=== PATIENT | male | born 1975 | race Caucasian/White ===

== ENCOUNTER 2023-05-04 00:35 | Inpatient (IN) | payer MEDICARE ==
[2023-05-04] MEDS ORDERED: LORazepam 2 MG/ML INJ IV STA ×5 (01:25→06:45)
[2023-05-04] MEDS ORDERED: chlordiazePOXIDE 25 MG CAP PO STA (01:25)
[2023-05-04] MEDS ORDERED: NICOTINE 21MG/24HR PATCH TRANSDERM STA ×2 (01:34→08:54)
[2023-05-04 02:43] LABS: Basophils # (A) 0.1 k/uL (0-0.2); Basophils % (A) 1 %; Eosinophils # (A) 0.2 k/uL (0-0.7); Eosinophils % (A) 3 %; HGB 15.2 gm/dL (13.0-17.5); Lymphocytes # (A) 1.5 k/uL (1.0-4.8); Lymphocytes % (A) 21 %; MCH 35.3 pg (25.0-35.0); MCHC 34.5 g/dL (31.0-37.0); MCV 102.2 fL (80.0-100.0); Macrocytosis Slight; Mean Platelet Volume 9.2; Monocytes # (A) 0.5 k/uL (0-1.0); Monocytes % (A) 7 %; Neutrophils # (A) 4.9 k/uL (1.3-7.7); Neutrophils % (A) 66 %; Platelet Count 122 k/uL (150-450); RBC 4.31 m/uL (4.30-5.90); WBC 7.4 k/uL (3.8-10.6)
[2023-05-04 03:23] LABS: ALT 74 U/L (4-49); AST 56 U/L (17-59); African American GFR (CKD) >90 (>60 ml/min/1.73 sqM); Alkaline Phosphatase 128 U/L (38-126); Anion Gap 12 mmol/L; Blood Urea Nitrogen 16 mg/dL (9-20); Carbon Dioxide 20 mmol/L (22-30); Chloride 102 mmol/L (98-107); Glucose 97 mg/dL (74-99); Non-African American GFR(CKD) >90 (>60 ml/min/1.73 sqM); Potassium 4.1 mmol/L (3.5-5.1); Sodium 134 mmol/L (137-145); Total Bilirubin 1.1 mg/dL (0.2-1.3); Total Protein 7.1 g/dL (6.3-8.2)
[2023-05-04] MEDS ORDERED: SODIUM CHLORIDE 0.9% 1,000 ML IV STA (04:35)
[2023-05-04] MEDS ORDERED: SODIUM CHLORIDE 0.9% 1,000 ML IV ONE (04:35)
[2023-05-04] MEDS ORDERED: NALOXONE 0.4 MG/ML 1 ML VIAL IV PRN (04:36)
[2023-05-04] MEDS ORDERED: chlordiazePOXIDE 25 MG CAP PO PRN (04:38)
[2023-05-04] MEDS ORDERED: LORazepam 1 MG TAB PO PRN (04:38)
--- NOTE | 2023-05-04 04:44 | ED ---
General Adult HPI - General Chief complaint: Psychiatric Symptoms Stated complaint: Hallucinations Time Seen by Provider: 05/04/23 00:55 Source: patient Mode of arrival: EMS Limitations: no limitations - History of Present Illness Initial comments: This patient is a 47-year-old man sent here from [facility] to have evaluation for hallucinations and altered mental status. Patient reportedly drinks approximately 1/5 of alcohol per day. Reported last use of alcohol nearly 2 days ago now. The patient was noted to be having conversations with people who were not there. He was also hallucinating about other things. On arrival here, the patient acknowledges hallucinations. States that he feels anxious and shaky. -: hour(s) Severity scale (1-10): 0 Consistency: constant Improves with: none Worsens with: none Associated Symptoms: confusion Treatments Prior to Arrival: none - Related Data Home Medications Medication Instructions Recorded Confirmed Acetaminophen Tab [Tylenol] 650 mg PO Q4H PRN MDD 4 doses 05/04/23 05/04/23 Calcium/Mag/Zinc/D3 1 tab PO TID PRN 05/04/23 05/04/23 Ibuprofen [Motrin Ib] 600 mg PO Q6H PRN 05/04/23 05/04/23 Multivitamins, Thera [Multivitamin 1 tab PO DAILY 05/04/23 05/04/23 (formulary)] Thiamine [Vitamin B-1] 100 mg PO DAILY 05/04/23 05/04/23 ondansetron HCL [Zofran] 8 mg PO Q6H PRN 05/04/23 05/04/23 traZODone HCL [Desyrel] 50 - 150 mg PO HS PRN 05/04/23 05/04/23 Previous Rx's Medication Instructions Recorded Famotidine [Pepcid] 20 mg PO BID 15 Days #30 tab 05/08/23 Gabapentin [Neurontin] 200 mg PO BID 3 Days #12 cap 05/08/23 Nicotine 21Mg/24Hr Patch [Habitrol] 1 patch TRANSDERM DAILY 5 Days #5 05/08/23 patch chlordiazePOXIDE HCl [Librium] 25 mg PO DIRECTED 5 Days #5 cap 05/08/23 cloNIDine HCL [Catapres] 0.1 mg PO BID #60 tab 05/08/23 Allergies Allergy/AdvReac Type Severity Reaction Status Date / Time erythromycin base Allergy Rash/Hives Verified 05/04/23 06:48 [From Erythrocin] acetaminophen [From [place]] AdvReac Hallucinati Verified 05/04/23 06:48 ons hydrocodone [From [place]] AdvReac Hallucinati Verified 05/04/23 06:48 ons Review of Systems ROS Statement: Those systems with pertinent positive or pertinent negative responses have been documented in the HPI. ROS Other: All systems not noted in ROS Statement are negative. Constitutional: Denies: fever, weakness Eyes: Denies: vision change Respiratory: Denies: cough, dyspnea Cardiovascular: Denies: chest pain, palpitations, edema Gastrointestinal: Reports: nausea. Denies: abdominal pain, vomiting, diarrhea Genitourinary: Denies: dysuria, hematuria Musculoskeletal: Denies: back pain Skin: Denies: rash Neurological: Reports: confusion. Denies: headache, weakness, numbness Psychiatric: Reports: anxiety Past Medical History Additional Past Medical History / Comment(s): Wing bite to hand and feet aprox 6-7 year ago. 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 Absent: scleral icterus, conjunctival injection ENT exam: Present: normal oropharynx Neck exam: Present: normal inspection Respiratory exam: Present: normal lung sounds bilaterally. Absent: respiratory distress, wheezes, rales, rhonchi, stridor Cardiovascular Exam: Present: regular rate, normal rhythm, normal heart sounds. Absent: systolic murmur, diastolic murmur, rubs, gallop GI/Abdominal exam: Present: soft. Absent: distended, tenderness, guarding, rebound, rigid Extremities exam: Present: normal inspection, normal capillary refill. Absent: pedal edema, calf tenderness Back exam: Present: normal inspection. Absent: CVA tenderness (R), CVA tenderness (L) Neurological exam: Present: alert Skin exam: Present: warm, dry, intact, normal color, rash (Patient has mild dermatitis bilateral lower extremities) Course Vital Signs 05/04/23 05/04/23 05/04/23 00:37 04:17 05:13 Temperature 98.4 F Pulse Rate 93 86 90 Respiratory 18 19 17 Rate Blood Pressure 138/92 155/99 175/110 O2 Sat by Pulse 97 98 97 Oximetry 05/04/23 05/04/23 06:30 06:35 Temperature Pulse Rate 89 90 Respiratory 19 17 Rate Blood Pressure 188/112 162/110 O2 Sat by Pulse 98 96 Oximetry - Reevaluation(s) Reevaluation #1: 05/04/23 06:24 Case discussed with mid-level practitioner Jerzy Centeno covering ICU, patient will be transferred there for elevated see what score Medical Decision Making - Medical Decision Making Was pt. sent in by a medical professional or institution (, PA, GLASS OR MIRROR INSPECTOR, urgent care, hospital, or senior living...) When possible be specific @ -Yes the patient sent from [facility] evaluation Did you speak to anyone other than the patient for history (EMS, parent, family, police, friend...)? What history was obtained from this source @ -[EMS Did you review nursing and triage notes (agree or disagree)? Why? @ -[I reviewed and agree with nursing and triage notes] Were old charts reviewed (outside hosp., previous admission, EMS record, old EKG, old radiological studies, urgent care reports/EKG's, senior living records)? Report findings @ -[The transfer records were reviewed] Differential Diagnosis (chest pain, altered mental status, abdominal pain women, abdominal pain men, vaginal bleeding, weakness, fever, dyspnea, syncope, headache, dizziness, GI bleed, back pain, seizure, CVA, palpatations, mental health, musculoskeletal)? @ -[Differential Altered Mental Status: Hypoglycemia, DKA, hypercapnia, ETOH, overdose, CO poisoning, trauma, myxedema coma, HTN encephalopathy, infection, encephalitis, psychosis, intercranial hemorrhage, hepatic encephalopathy, meningitis, CVA, this is not meant to be an all-inclusive list EKG interpreted by me (3pts min.). @ -[As above] X-rays interpreted by me (1pt min.). @ -[None done] CT interpreted by me (1pt min.). @ -[None done] U/S interpreted by me (1pt. min.). @ -[None done] What testing was considered but not performed or refused? (CT, X-rays, U/S, labs)? Why? @ -[None] What meds were considered but not given or refused? Why? @ -[None] Did you discuss the management of the patient with other professionals (professionals i.e. , PA, GLASS OR MIRROR INSPECTOR, lab, RT, psych nurse, mental health social worker, furnace loader, teacher, chief technical officer, case operator)? Give summary @ -[Case discussed with the admitting physician and with the mid-level practitioner covering intensive care, treatment recommendations are incorporated Was smoking cessation discussed for >3mins.? @ -[No] Was critical care preformed (if so, how long)? @ -[Yes, 35 minutes Were there social determinants of health that impacted care today? How? (Homelessness, low income, unemployed, alcoholism, drug addiction, transportation, low edu. Level, literacy, decrease access to med. care, long term, rehab)? @ -[No] Was there de-escalation of care discussed even if they declined (Discuss DNR or withdrawal of care, Hospice)? DNR status @ -[No] What co-morbidities impacted this encounter? (DM, HTN, Smoking, COPD, CAD, Cancer, CVA, ARF, Chemo, Hep., AIDS, mental health diagnosis, sleep apnea, morbid obesity)? @ -[None] Was patient admitted / discharged? Hospital course, mention meds given and route, prescriptions, significant lab abnormalities, going to OR and other pertinent info. @ -[Patient is a 47-year-old man here with altered mental status, consistent with moderately severe alcohol withdrawal syndrome/delirium tremens. Patient started on benzodiazepine coverage IV fluids, admitted to intensive care. Undiagnosed new problem with uncertain prognosis? @ -[No] Drug Therapy requiring intensive monitoring for toxicity (Heparin, Nitro, Insulin, Cardizem)? @ -[No] Were any procedures done? @ -[No] Diagnosis/symptom? @ -[Acute alcohol withdrawal/delirium tremens Acute, or Chronic, or Acute on Chronic? @ -[Acute Uncomplicated (without systemic symptoms) or Complicated (systemic symptoms)? @ -[Complicated by hallucinations/mental status change Side effects of treatment? @ -[No] Exacerbation, Progression, or Severe Exacerbation? @ -[No] Poses a threat to life or bodily function? How? (Chest pain, USA, AR, pneumonia, PE, COPD, DKA, ARF, appy, cholecystitis, CVA, Diverticulitis, Homicidal, Suicidal, threat to staff... and all critical care pts) @ -[Yes, withdrawal/delirium tremens associated with significant morbidity/mortality - Lab Data Result diagrams: 05/06/23 03:36 05/07/23 06:33 Lab Results 05/04/23 05/04/23 Range/Units 02:35 02:35 WBC 7.4 (3.8-10.6) k/uL RBC 4.31 (4.30-5.90) m/uL Hgb 15.2 (13.0-17.5) gm/dL Hct 44.0 (39.0-53.0) % MCV 102.2 H (80.0-100.0) fL MCH 35.3 H (25.0-35.0) pg MCHC 34.5 (31.0-37.0) g/dL RDW 13.0 (11.5-15.5) % Plt Count 122 L (150-450) k/uL MPV 9.2 Neutrophils % 66 % Lymphocytes % 21 % Monocytes % 7 % Eosinophils % 3 % Basophils % 1 % Neutrophils # 4.9 (1.3-7.7) k/uL Lymphocytes # 1.5 (1.0-4.8) k/uL Monocytes # 0.5 (0-1.0) k/uL Eosinophils # 0.2 (0-0.7) k/uL Basophils # 0.1 (0-0.2) k/uL Macrocytosis Slight Sodium 134 L (137-145) mmol/L Potassium 4.1 (3.5-5.1) mmol/L Chloride 102 (98-107) mmol/L Carbon Dioxide 20 L (22-30) mmol/L Anion Gap 12 mmol/L BUN 16 (9-20) mg/dL Creatinine 0.73 (0.66-1.25) mg/dL Est GFR (CKD-EPI)AfAm >90 (>60 ml/min/1.73 sqM) Est GFR (CKD-EPI)NonAf >90 (>60 ml/min/1.73 sqM) Glucose 97 (74-99) mg/dL Calcium 10.0 (8.4-10.2) mg/dL Total Bilirubin 1.1 (0.2-1.3) mg/dL AST 56 (17-59) U/L ALT 74 H (4-49) U/L Alkaline Phosphatase 128 H (38-126) U/L Total Protein 7.1 (6.3-8.2) g/dL Albumin 4.0 (3.5-5.0) g/dL TSH 4.810 H (0.465-4.680) mIU/L Free T4 1.40 (0.78-2.19) ng/dL Disposition Clinical Impression: Acute hyperactive alcohol withdrawal delirium Disposition: ADMITTED IP TO THIS HOSP Condition: Serious Is patient prescribed a controlled substance at d/c from ED?: No
[2023-05-04] MEDS: SODIUM CHLORIDE 0.9% 1,000 ML IV SCH ×2 (05:09→20:21)
[2023-05-04] MEDS: THIAMINE 100 MG TAB PO SCH (05:11)
[2023-05-04] MEDS: LORazepam 2 MG/ML INJ IV PRN ×3 (05:47→07:59)
[2023-05-04] MEDS: DEXMEDETOMIDINE/0.9% NACL(PMX) 400 MCG in EMPTY BAG 1 BAG IV SCH ×4 (06:35→21:49)
[2023-05-04] MEDS ORDERED: ACETAMINOPHEN TAB 325 MG TAB PO PRN (06:42)
[2023-05-04] MEDS ORDERED: Potassium Replacement Protocol 1 EACH MISC MISCELLANE PRN (06:42)
[2023-05-04] MEDS ORDERED: Magnesium Replacement Protocol 1 EACH MISC MISCELLANE PRN (06:42)
[2023-05-04 06:52] LABS: Glucose,Whole Blood 107 mg/dL (70-110)
--- NOTE | 2023-05-04 07:28 | P.CNPUL ---
History of Present Illness Consult date: 05/04/23 Requesting physician: Bill Bailey Reason for consult: other (ICU management, alcohol withdrawal) Chief complaint: Delirium tremens History of present illness: I am seeing this patient in new consultation today 05/04/2023 in the intensive care unit for acute alcohol withdrawal syndrome. Patient is a 47-year-old white male with past medical history significant for alcoholism. He reportedly drinks one fifth per day. Last drink was apparently Wednesday. He is currently delirious and unable to participate in HPI. [facility] He was there to become clean from alcohol. He was having hallucinations and was anxious and shaky. He's received a total of 16 mg of Ativan so far. For this reason, he is admitted to the intensive care unit. He will be started on Precedex infusion as he still agitated. He did try to climb on the bedside table, and is currently trying to get out of bed. Most recent recorded CIWA score is 18. He is having active auditory hallucinations. He does have a bedside sitter. Hemodynamically, the patient is stable. He is slightly hypertensive. No seizure activity noted. CBC on arrival is unremarkable. Except for some macrocytosis. He is likely vitamin B deficiency, and is on supplementation. BMP on arrival unremarkable. Normal saline infusing at 75 ml/hr. Patient will be monitored in the intensive care unit. Review of Systems REVIEW OF SYSTEMS: CONSTITUTIONAL: Denies any recent significant weight loss or weight gain. EYES: Denies change in vision. EARS, NOSE, MOUTH, THROAT: Denies headaches, denies sore throat. CARDIOVASCULAR: Denies chest pain, palpitations or syncopal episodes. RESPIRATORY: Denies shortness of breath, cough, congestion or hemoptysis. GASTROINTESTINAL: Denies change in appetite, abdominal pain, nausea and vomiting, or diarrhea GENITOURINARY: Denies hematuria, denies infections. MUSKULOSKELETAL: Denies pain, denies swelling. INTEGUMENTARY: Denies rash, denies eczema. NEUROLOGICAL: Denies recent memory loss, no recent seizure activity. PSYCHIATRIC: Denies anxiety, denies depression. HEMATOLOGIC/LYMPHATIC: Denies anemia, denies enlarged lymph node Past Medical History Additional Past Medical History / Comment(s): Wing bite to hand and feet aprox 6-7 year ago. 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 Past Psychological History: No Psychological Hx Reported Smoking Status: Current every day smoker Past Alcohol Use History: Abuse Past Drug Use History: None Reported Medications and Allergies Home Medications Medication Instructions Recorded Confirmed Type Acetaminophen Tab [Tylenol] 650 mg PO Q4H PRN MDD 4 doses 05/04/23 05/04/23 History Calcium/Mag/Zinc/D3 1 tab PO TID PRN 05/04/23 05/04/23 History Chlorpheniramine Maleate 4 mg PO Q4H PRN 05/04/23 05/04/23 History [Chlor-Trimeton] Ibuprofen [Motrin Ib] 600 mg PO Q6H PRN 05/04/23 05/04/23 History LORazepam [Ativan] 1 - 2 mg PO Q4H PRN 05/04/23 05/04/23 History Multivitamins, Thera [Multivitamin 1 tab PO DAILY 05/04/23 05/04/23 History (formulary)] Thiamine [Vitamin B-1] 100 mg PO DAILY 05/04/23 05/04/23 History cloNIDine HCL [Catapres] 0.1 mg PO Q4H PRN 05/04/23 05/04/23 History ondansetron HCL [Zofran] 8 mg PO Q6H PRN 05/04/23 05/04/23 History traZODone HCL [Desyrel] 50 - 150 mg PO HS PRN 05/04/23 05/04/23 History Allergies Allergy/AdvReac Type Severity Reaction Status Date / Time erythromycin base Allergy Rash/Hives Verified 05/04/23 06:48 [From Erythrocin] acetaminophen [From [place]] AdvReac Hallucinati Verified 05/04/23 06:48 ons hydrocodone [From [place]] AdvReac Hallucinati Verified 05/04/23 06:48 ons Physical Exam Vitals: Vital Signs Temp Pulse Resp BP Pulse Ox 05/04/23 06:35 90 17 162/110 96 05/04/23 06:30 89 19 188/112 98 05/04/23 05:13 90 17 175/110 97 05/04/23 04:17 86 19 155/99 98 05/04/23 00:37 98.4 F 93 18 138/92 97 Intake and Output 05/03/23 05/04/23 05/04/23 22:59 06:59 14:59 Other: Weight 86.183 kg GENERAL EXAM: Agitated and confused, 47-year-old male, disheveled HEAD: Normocephalic and atraumatic EYES: Normal reaction of pupils, equal size. NOSE: Clear with pink turbinates. THROAT: No erythema or exudates. NECK: No masses, no JVD. CHEST: No chest wall deformity. LUNGS: Equal air entry with no crackles, wheeze, rhonchi or dullness. On room air. No conversational dyspnea or accessory muscle use.. CVS: S1 and S2 normal with no audible murmur, regular rhythm. No extra heart sounds ABDOMEN: No hepatosplenomegaly, active bowel sounds, no guarding or rigidity. SPINE: No scoliosis or deformity SKIN: No rashes CENTRAL NERVOUS SYSTEM: No focal deficits, tone is normal in all 4 extremities. EXTREMITIES: There is no peripheral edema or cyanosis. Peripheral pulses are intact. There is severe clubbing. Results - Laboratory Findings CBC and BMP: 05/04/23 02:35 05/04/23 02:35 Abnormal lab findings: Abnormal Labs 05/04/23 05/04/23 02:35 02:35 MCV 102.2 H MCH 35.3 H Plt Count 122 L Sodium 134 L Carbon Dioxide 20 L ALT 74 H Alkaline Phosphatase 128 H TSH 4.810 H Assessment and Plan Assessment: Alcohol withdrawal syndrome and delirium tremens History of alcoholism, reportedly 1/5 of liquor/daily Mildly elevated LFTs related to above Hypertension Chronic ongoing tobacco dependence Plan: Patient will be admitted to the intensive care unit for management of his acute alcohol withdrawal symptoms. Currently he received a total of 16 mg of Ativan. He still agitated and delirious with an elevated CIWA score. Last recorded CIWA was 18. We will start the patient on a Precedex infusion per protocol. Patient is receiving vitamin B1 supplementation. IV hydration in the form of normal saline at 75 mL per hour. Initiate seizure precautions. Protonix for GI prophylaxis. Further recommendations are forthcoming. I have personally seen and examined the patient, performed the documentation and the assessment and plan as written. Number of minutes spent on the visit:20 This is a joint evaluation that was done along with the nurse practitioner. His evaluation was on a more than 30 minutes. The patient came to us from [place] because of alcohol withdrawal wounds. He was extensively agitated. Kristie guido is in the intensive care unit. Orders received a total of 18 mg of Ativan and he is on Precedex at 1.4 mcg/kg/h. He is resting comfortably at this point in time. No signs of any respiratory suppression. He is on room air oxygen.Blood work is essentially within normal limits. He does have a mild component of non-anion gap metabolic acidosis. He does have also a mild abnormalities in LFTs. He is currently on Librium 50 mg every 4 hours when necessary, Precedex, Ativan as needed per protocol, normal saline at rate of 75 mL's an hour, thiamine, and he will be also given heparin subcu for DVT prophylaxis and IV Protonix. We will order nicotine patch. We'll give the patient hydralazine 10 mg IV every 4-6 hours for systolic blood pressure above 140. Time with Patient: Greater than 30
--- NOTE | 2023-05-04 07:48 | P.HPIM ---
History of Present Illness This is a pleasant 47 years old male with unknown past medical history. Patient currently cannot provide information due to his confusion status. Information were obtained from the staff and medical records. Patient initially was sent from [place] for visual hallucinations which is started yesterday 05/20. Patient was noticed talking to people that are not there. He is a known history of alcohol use disorder and he drinks about 1/5 of liquor per day per records. Patient hemodynamically stable. No fever, no leukocytosis, the suspicion of infection is low for now however we'll keep monitoring her closely Liver enzymes mildly elevated, bilirubin is within the reference range TSH is high at 4.8 but normal free T4 at 1.4. His CIWA score was origin between 18-21 As per staff once he got to the ICU patient be about 850 mL and his suprapubic area still looks a little full Review of Systems ROS unobtainable: due to mental status Past Medical History Additional Past Medical History / Comment(s): Wing bite to hand and feet aprox 6-7 year ago. History of Any Multi-Drug Resistant Organisms: None Reported Additional Past Surgical History / Comment(s): amputations to the tips of finger s and most of his toes Past Psychological History: No Psychological Hx Reported Smoking Status: Current every day smoker Past Alcohol Use History: Abuse Past Drug Use History: None Reported Medications and Allergies Home Medications Medication Instructions Recorded Confirmed Type Acetaminophen Tab [Tylenol] 650 mg PO Q4H PRN MDD 4 doses 05/04/23 05/04/23 History Calcium/Mag/Zinc/D3 1 tab PO TID PRN 05/04/23 05/04/23 History Chlorpheniramine Maleate 4 mg PO Q4H PRN 05/04/23 05/04/23 History [Chlor-Trimeton] Ibuprofen [Motrin Ib] 600 mg PO Q6H PRN 05/04/23 05/04/23 History LORazepam [Ativan] 1 - 2 mg PO Q4H PRN 05/04/23 05/04/23 History Multivitamins, Thera [Multivitamin 1 tab PO DAILY 05/04/23 05/04/23 History (formulary)] Thiamine [Vitamin B-1] 100 mg PO DAILY 05/04/23 05/04/23 History cloNIDine HCL [Catapres] 0.1 mg PO Q4H PRN 05/04/23 05/04/23 History ondansetron HCL [Zofran] 8 mg PO Q6H PRN 05/04/23 05/04/23 History traZODone HCL [Desyrel] 50 - 150 mg PO HS PRN 05/04/23 05/04/23 History Allergies Allergy/AdvReac Type Severity Reaction Status Date / Time erythromycin base Allergy Rash/Hives Verified 05/04/23 06:48 [From Erythrocin] acetaminophen [From [place]] AdvReac Hallucinati Verified 05/04/23 06:48 ons hydrocodone [From [place]] AdvReac Hallucinati Verified 05/04/23 06:48 ons Physical Exam Vitals: Vital Signs Temp Pulse Resp BP Pulse Ox 05/04/23 06:35 90 17 162/110 96 05/04/23 06:30 89 19 188/112 98 05/04/23 05:13 90 17 175/110 97 05/04/23 04:17 86 19 155/99 98 05/04/23 00:37 98.4 F 93 18 138/92 97 Intake and Output 05/03/23 05/04/23 05/04/23 22:59 06:59 14:59 Other: Weight 86.183 kg -GENERAL: The patient is awake but very confused, does not follow commands. Well developed, well nourished. HEENT: Pupils are round and equally reacting to light. EOMI. No scleral icterus. No conjunctival pallor. Normocephalic, atraumatic. No pharyngeal erythema. No thyromegaly. CARDIOVASCULAR: S1 and S2 present. No murmurs, rubs, or gallops. PULMONARY: Chest is clear to auscultation, no wheezing , no crackles. ABDOMEN: Soft, nontender, nondistended, normoactive bowel sounds. No palpable o rganomegaly. MUSCULOSKELETAL: No joint swelling or deformity. EXTREMITIES: No cyanosis, clubbing, or pedal edema. -NEUROLOGICAL: examination is limited by patient's mentation. Gross neurological examination did not reveal any focal deficits. patient is noticed to move both upper and lower extremities symmetrically, he was holding the very remote in his right hand and trying to reach out with his left hand. He moves both legs slowly and symmetrically. The open his mouth without difficulty. It's hard to assess for neck stiffness as patient is not cooperation and he is sitting up in bed. -SKIN: No rashes. no petechiae. tattoos on the right shoulder Results CBC & Chem 7: 05/04/23 02:35 05/04/23 02:35 Labs: Abnormal Lab Results - Last 24 Hours (Table) 05/04/23 05/04/23 Range/Units 02:35 02:35 MCV 102.2 H (80.0-100.0) fL MCH 35.3 H (25.0-35.0) pg Plt Count 122 L (150-450) k/uL Sodium 134 L (137-145) mmol/L Carbon Dioxide 20 L (22-30) mmol/L ALT 74 H (4-49) U/L Alkaline Phosphatase 128 H (38-126) U/L TSH 4.810 H (0.465-4.680) mIU/L Assessment and Plan Assessment: Delirium tremens with hallucination Metabolic/toxic encephalopathy Alcohol use disorder Subclinical hyperthyroidism, asymptomatic Mild alcoholic transaminitis Plan: Continue with CIWA protocol and phentermine Continue with telemetry Keep monitoring in the ICU with pulmonary/critical care consult Start Librium 25 mg 3 times a day Check for bladder scan Labs and medication were reviewed.. Continue same treatment. Continue with symptomatic treatment. Resume home medication. Monitor labs and vitals. DVT and GI prophylaxis. Further recommendations as per clinical course of the patient DVT prophylaxis: Subcutaneous heparin GI Prophylaxis: Pepcid Prognosis is guarded
[2023-05-04] MEDS: hydrALAZINE HCL 20 MG/ML 1 ML VIAL IVP PRN ×3 (09:12→21:13)
[2023-05-04] MEDS: PANTOPRAZOLE 40 MG/10 ML VIAL IVP SCH (09:12)
[2023-05-04] MEDS: HEPARIN SODIUM,PORCINE 5,000 UNIT/ML 1 ML VIAL SQ SCH ×2 (09:12→21:13)
[2023-05-04] MEDS: FAMOTIDINE 20 MG TAB PO SCH ×2 (09:12→21:15)
--- NOTE | 2023-05-04 14:36 | P.CN ---
Psychiatric Consult - . Consult date: 05/04/23 Consult:: 05/04/23 13:47 IDENTIFYING DATA: This patient is a [] 47-year-old male, currently lives with his mother in a house, he is unemployed, he is divorce he has not kids. REASON FOR REFERRAL: Psychiatry was consulted for []hallucinations and acute alcohol withdrawal. HISTORY OF PRESENT ILLNESS: The patient presented to the hospital on 05/04, patient came in and was sent from [facility] after being altered mental status and confused. Patient apparently was hallucinating and talking and having conversations with people who weren't there. Patient reportedly drinks fairly heavily every day, his last drink was about 2 days ago before admission. Patient appeared to be anxious and shaky, he is admitted to the ICU for treatment of severe alcohol withdrawal. Patient was laying in bed with his eyes closed. He was agreeable to speak tried her briefly. He was fairly concrete, fairly soft spoken. He told me his name and his correct age. She did not know where he was. He believes that it was "05/18/2003". He states that he was "drinking too much" and states that he was around a pint of alcohol per day. He states that he may have been hallucinating he does not recall. She was a fairly poor historian. He did not endorse any problems with his mood or anxiety at this time. Very mildly tremulous at this time. Nursing care patient states that he was hallucinating earlier in the morning, UA has been given around 18 mg of Ativan since being in the hospital. He is currently on precedex which is being titrated down. At this time patient denies any suicidal or homical ideations, intent or plan. Patient denies any current auditory, visual hallucinations and denies any paranoia or delusions. Patients admits to using alcohol as noted above. Denies any other recreational drug use.] PAST PSYCHIATRIC HISTORY: Patient has a a history of alcohol dependence/abuse. Was not able to gather further information from patient due to mental status. Additional Past Medical History / Comment(s): Wing bite to hand and feet aprox 6-7 year ago. 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 CHEMICAL DEPENDENCY HISTORY: as per HPI. FAMILY PSYCHIATRIC/SUBSTANCE USE HISTORY: unAble to gather SOCIAL HISTORY: Patient things that he currently lives with his mother, and house, he is , he is unemployed, no kids. Unable to gather further social history. MENTAL STATUS EXAM: General Appearance: Patient appears to be laying in bed, eyes closed, stated age is lethargic. Patient appears to have [fair] hygiene and grooming wearing hospital gown. Several tattoos Behavior: [Patient is calmly lying in bed without any agitated behavior.] Mildly tremulous. Eyes closed. Speech: Patient's speech is concrete, soft tone. Mood/Affect: Not endorsing any depression at this time, constricted affect Suicidality/Homicidality: Patient denies having any suicidal or homicidal ideation intent or plan. Perceptions: Patient denies any visual hallucinations [and denies any auditory hallucinations] however was apparently hallucinating earlier. Though content/process: [place], positive content. Memory and concentration: AOX1-2, does not know the correct location and the correct date today. Only follow some commands. Fairly lethargic Judgment and insight: [poor] IMPRESSIONS: Delirium likely secondary to alcohol withdrawal Alcohol use disorder, severe dependence PLAN: -At this time patient DOES [NOT] meet criteria for inpatient psychiatric admission. -Would recommend the following medication changes/additions: continue titrating off precedex as tolerated. Start Librium scheduled 25 mg 3 times a day for alcohol withdrawal and then continue to taper gradually each day. [-CIWA protocol with PRN Ativan for alcohol withdrawal. Continue to monitor vital signs.] [-mental health worker to provide patient with outpatient mental health/psychiatry resources for appropriate follow up upon discharge] [-mental health worker to provide patient substance use treatment resources including AA/NA meetings in the community.] -Patient was encouraged to go back to [facility] inpatient substance rehab once he has completely finished his withdrawals and is no longer confused or delirious. [-Communicated plan to patient's nurse] [-Psychiatry will sign off at this time, however if patient continues to deteriorate or worsen then please contact [facility] again.] -Please contact with any questions. 05/04/23 14:29 05/04/23 14:31
[2023-05-04] MEDS: chlordiazePOXIDE 25 MG CAP PO SCH ×2 (17:43→21:15)
[2023-05-05] MEDS ORDERED: IBUPROFEN 400 MG TAB PO STA (03:38)
[2023-05-05 05:07] LABS: Basophils % (A) 0 %; Eosinophils # (A) 0.1 k/uL (0-0.7); Eosinophils % (A) 2 %; HCT 47.2 % (39.0-53.0); HGB 15.7 gm/dL (13.0-17.5); Lymphocytes # (A) 0.6 k/uL (1.0-4.8); Lymphocytes % (A) 8 %; MCH 34.4 pg (25.0-35.0); MCHC 33.2 g/dL (31.0-37.0); MCV 103.6 fL (80.0-100.0); Macrocytosis Slight; Mean Platelet Volume 8.8; Monocytes # (A) 0.5 k/uL (0-1.0); Monocytes % (A) 6 %; Neutrophils # (A) 7.1 k/uL (1.3-7.7); Neutrophils % (A) 83 %; Platelet Count 158 k/uL (150-450); RBC 4.55 m/uL (4.30-5.90); RDW 13.1 % (11.5-15.5); WBC 8.5 k/uL (3.8-10.6)
[2023-05-05 05:17] LABS: African American GFR (CKD) >90 (>60 ml/min/1.73 sqM); Anion Gap 11 mmol/L; Blood Urea Nitrogen 14 mg/dL (9-20); Calcium 8.8 mg/dL (8.4-10.2); Carbon Dioxide 18 mmol/L (22-30); Chloride 106 mmol/L (98-107); Glucose 84 mg/dL (74-99); Non-African American GFR(CKD) >90 (>60 ml/min/1.73 sqM); Sodium 135 mmol/L (137-145)
[2023-05-05] MEDS: chlordiazePOXIDE 25 MG CAP PO SCH ×3 (09:00→21:14)
[2023-05-05] MEDS: THIAMINE 100 MG TAB PO SCH (09:00)
[2023-05-05] MEDS: FAMOTIDINE 20 MG TAB PO SCH ×2 (09:00→21:14)
[2023-05-05] MEDS: PANTOPRAZOLE 40 MG/10 ML VIAL IVP SCH ×2 (09:00→23:39)
[2023-05-05] MEDS: HEPARIN SODIUM,PORCINE 5,000 UNIT/ML 1 ML VIAL SQ SCH ×2 (09:00→21:14)
[2023-05-05] MEDS: SODIUM CHLORIDE 0.9% 1,000 ML IV SCH ×2 (09:01→21:15)
[2023-05-05] MEDS: LORazepam 2 MG/ML INJ IV PRN ×3 (09:09→17:31)
[2023-05-05] MEDS ORDERED: ONDANSETRON 4 MG/2 ML VIAL IVP STA (09:13)
[2023-05-05] MEDS ORDERED: ONDANSETRON 4 MG/2 ML VIAL IVP PRN (09:13)
--- NOTE | 2023-05-05 10:37 | P.PN ---
Subjective Progress Note Date: 05/05/23 I am seeing this patient in new consultation today 05/04/2023 in the intensive care unit for acute alcohol withdrawal syndrome. Patient is a 47-year-old white male with past medical history significant for alcoholism. He reportedly drinks one fifth per day. Last drink was apparently Wednesday. He is currently delirious and unable to participate in HPI. Patient was sent from [facility] facility early this morning. He was there to become clean from alcohol. He was having hallucinations and was anxious and shaky. He's received a total of 16 mg of Ativan so far. For this reason, he is admitted to the intensive care unit. He will be started on Precedex infusion as he still agitated. He did try to climb on the bedside table, and is currently trying to get out of bed. Most recent recorded CIWA score is 18. He is having active auditory hallucinations. He does have a bedside sitter. Hemodynamically, the patient is stable. He is slightly hypertensive. No seizure activity noted. CBC on arrival is unremarkable. Except for some macrocytosis. He is likely vitamin B deficiency, and is on supplementation. BMP on arrival unremarkable. Normal saline infusing at 75 ml/hr. Patient will be monitored in the intensive care unit. On today's evaluation of 05/05/2023, the patient is off Precedex. The patient was taken off Precedex as of 5:45 AM this morning. He reported also some Ativan 1 mg at 9:30 AM this morning. No hallucinations. No confusions. He continues to have some shakiness and tremor. Is experiencing nausea and some abdominal pain. He had soft diet this morning. No emesis. No headaches. No altered mentation. Is quite weak. He is communicating however. In terms of his labs, his white cell count of 8.5 with a hemoglobin of 15.7, sodium level is at 135, BUN is at 40 with a creatinine of 0.6. Is currently on normal saline running at 75 mL an hour. Is also taken Librium 25 g by mouth 3 times a day. Is on Pepcid 20 mg twice a day and is also on Zofran. Objective - Vital Signs Vital signs: Vital Signs Temp 97.7 F 05/05/23 08:00 Pulse 80 05/05/23 10:00 Resp 29 H 05/05/23 10:00 BP 111/67 05/05/23 10:00 Pulse Ox 96 05/05/23 10:00 FiO2 Intake & Output 05/04/23 05/05/23 05/05/23 18:59 06:59 18:59 Intake Total 3031.136 1597.717 300 Output Total 1900 1630 Balance -401.513 7024.717 300 Weight 82.5 kg Intake: IV 900 900 300 Sodium Chloride 0.9% 1, 900 900 300 000 ml @ 75 mls/hr IV . [id number] [facility] Rx#:[id number] Intake, IV Titration 198.572 125.717 Amount Dexmedetomidine/0.9% NaCl 198.572 125.717 (Pmx) 400 mcg In Empty Bag 1 bag @ 0.2 MCG/KG/HR 4.309 mls/hr IV .[id number] [facility] Rx#:[id number] Oral 1920 Output: Urine 600 1630 Post Void Residual 1300 Other: Voiding Method Urinal External Catheter # Voids 1 - Exam GENERAL EXAM: 47-year-old male, disheveled, having some tremors, no respiratory difficulties and the patient has no significant agitation on room air oxygen. HEAD: Normocephalic and atraumatic EYES: Normal reaction of pupils, equal size. NOSE: Clear with pink turbinates. THROAT: No erythema or exudates. NECK: No masses, no JVD. CHEST: No chest wall deformity. LUNGS: Equal air entry with no crackles, wheeze, rhonchi or dullness. On room air. No conversational dyspnea or accessory muscle use.. CVS: S1 and S2 normal with no audible murmur, regular rhythm. No extra heart sounds ABDOMEN: No hepatosplenomegaly, active bowel sounds, no guarding or rigidity. SPINE: No scoliosis or deformity SKIN: No rashes CENTRAL NERVOUS SYSTEM: No focal deficits, tone is normal in all 4 extremities. EXTREMITIES: There is no peripheral edema or cyanosis. Peripheral pulses are intact. There is severe clubbing. 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 We'll give the patient hydralazine 10 mg IV every 4-6 hours for systolic blood pressure above 140. Will keep sitter and monitor start the patient also Neurontin 300 milligrams 3 times a day every 8 hours for symptoms of neuropathy and chronic pain.
[2023-05-05] MEDS: GABAPENTIN 300 MG CAP PO SCH ×3 (10:46→21:14)
[2023-05-05] MEDS: NICOTINE 21MG/24HR PATCH TRANSDERM SCH (10:47)
[2023-05-05 13:16] LABS: Amylase 1589 U/L (30-110); Lipase 6820 U/L (23-300)
[2023-05-05] MEDS: hydrALAZINE HCL 20 MG/ML 1 ML VIAL IVP PRN (19:05)
--- NOTE | 2023-05-05 23:04 | P.PN ---
Subjective This is a pleasant 47 years old male with unknown past medical history. Patient currently cannot provide information due to his confusion status. I nformation were obtained from the staff and medical records. Patient initially was sent from [facility] for visual hallucinations which is started yesterday 05/20. Patient was noticed talking to people that are not there. He is a known history of alcohol use disorder and he drinks about 1/5 of liquor per day per records. Patient hemodynamically stable. No fever, no leukocytosis, the suspicion of infection is low for now however we'll keep monitoring her closely Liver enzymes mildly elevated, bilirubin is within the reference range TSH is high at 4.8 but normal free T4 at 1.4. His CIWA score was origin between 18-21 As per staff once he got to the ICU patient be about 850 mL and his suprapubic area still looks a little full 05/05/2023 Patient today is awake oriented to time place and person, his CIWA score is coming down to 2-3 with spikes at her level at time but generally doing well, He has some tremor and he can use hands with little difficulty. However patient is not eating well because of epigastric pain and tenderness secondary to pancreatitis with elevated lipase and amylase Postop may consider increasing her fluid to 1 25 mL/h on Protonix twice a day. Review of systems CONSTITUTIONAL: No fever, no malaise, no fatigue. HEENT: No recent visual problems or hearing problems. Denied any sore throat. CARDIOVASCULAR: No orthopnea, PND, no palpitations, no syncope. PULMONARY: No shortness of breath, no cough, no hemoptysis. HEMATOLOGICAL: Denies any bleeding or petechiae. GENITOURINARY: Denies any burning micturition, frequency, or urgency. MUSCULOSKELETAL/RHEUMATOLOGICAL: Denies any joint pain, swelling, or any muscle pain Active Medications Generic Name Dose Route Start Last Admin Trade Name Freq PRN Reason Stop Dose Admin Acetaminophen 650 mg 05/04/23 06:42 Acetaminophen Tab 325 Mg Tab PO Q4HR PRN Fever and/or Mild Pain Chlordiazepoxide HCl 25 mg 05/04/23 16:00 05/05/23 21:14 Chlordiazepoxide 25 Mg Cap PO 25 mg TID [facility] Administration Famotidine 20 mg 05/04/23 09:00 05/05/23 21:14 Famotidine 20 Mg Tab PO 20 mg BID [facility] Administration Gabapentin 300 mg 05/05/23 10:45 05/05/23 21:14 Gabapentin 300 Mg Cap PO 300 mg TID [facility] Administration Heparin Sodium (Porcine) 5,000 unit 05/04/23 09:00 05/05/23 21:14 Heparin Sodium,Porcine 5,000 Unit/Ml 1 Ml Vial SQ 5,000 unit Q12HR [facility] Administration Hydralazine HCl 10 mg 05/04/23 08:52 05/05/23 19:05 Hydralazine Hcl 20 Mg/Ml 1 Ml Vial IVP 10 mg Q4HR PRN Administration Blood Pressure - High Sodium Chloride 1,000 mls @ 125 mls/hr 05/04/23 04:45 05/05/23 21:15 Saline 0.9% IV 75 mls/hr .Q8H [facility] Administration Dexmedetomidine HCl 400 mcg/ 100 mls @ 4.309 mls/hr 05/04/23 06:15 05/05/23 05:44 IV Solution IV 0 mcg/kg/hr .[id number] [facility] 0 mls/hr Titration Protocol 0.2 MCG/KG/HR Lorazepam 1 mg 05/04/23 04:38 Lorazepam 1 Mg Tab PO Q1HR PRN Alcohol Withdrawal Lorazepam 1 mg 05/04/23 04:38 05/05/23 17:31 Lorazepam 2 Mg/Ml Inj IV 1 mg Q2HR PRN Administration CIWA 8 or 9 Lorazepam 1 mg 05/04/23 04:38 05/05/23 09:09 Lorazepam 2 Mg/Ml Inj IV 1 mg Q1HR PRN Administration CIWA 10 to 15 Miscellaneous Information 1 each 05/04/23 06:42 Potassium Replacement Protocol 1 Each Misc MISCELLANE DAILY PRN Per Protocol Miscellaneous Information 1 each 05/04/23 06:42 Magnesium Replacement Protocol 1 Each Misc MISCELLANE DAILY PRN Per Protocol Protocol Naloxone HCl 0.2 mg 05/04/23 04:36 Naloxone 0.4 Mg/Ml 1 Ml Vial IV Q2M PRN Opioid Reversal Nicotine 1 patch 05/05/23 10:45 05/05/23 10:47 Nicotine 21mg/24hr Patch TRANSDERM 1 patch DAILY [facility] Administration Ondansetron HCl 4 mg 05/05/23 09:13 05/05/23 17:31 Ondansetron 4 Mg/2 Ml Vial IVP 4 mg Q6HR PRN Administration Nausea And Vomiting Pantoprazole Sodium 40 mg 05/05/23 23:00 Pantoprazole 40 Mg/10 Ml Vial IVP BID [facility] Thiamine HCl 100 mg 05/04/23 04:45 05/05/23 09:00 Thiamine 100 Mg Tab PO 100 mg DAILY [facility] Administration Objective - Vital Signs Vital signs: Vital Signs Temp 97.7 F 05/05/23 08:00 Pulse 90 05/05/23 11:00 Resp 20 05/05/23 11:00 BP 140/85 05/05/23 11:00 Pulse Ox 93 L 05/05/23 11:00 FiO2 Intake & Output 05/04/23 05/05/23 05/05/23 18:59 06:59 18:59 Intake Total 4986.175 2412.717 375 Output Total 1900 1630 250 Balance -436.285 8562.717 125 Weight 82.5 kg Intake: IV 900 900 375 Sodium Chloride 0.9% 1, 900 900 375 000 ml @ 75 mls/hr IV . [id number] [facility] Rx#:[id number] Intake, IV Titration 198.572 125.717 Amount Dexmedetomidine/0.9% NaCl 198.572 125.717 (Pmx) 400 mcg In Empty Bag 1 bag @ 0.2 MCG/KG/HR 4.309 mls/hr IV .[id number] [facility] Rx#:[id number] Oral 1920 Output: Urine 600 1630 250 Post Void Residual 1300 Other: Voiding Method Urinal External Catheter External Catheter # Voids 1 1 - Exam GENERAL: The patient is alert and oriented x3, not in any acute distress. Well developed, well nourished. HEENT: Pupils are round and equally reacting to light. EOMI. No scleral icterus. No conjunctival pallor. Normocephalic, atraumatic. No pharyngeal erythema. No thyromegaly. CARDIOVASCULAR: S1 and S2 present. No murmurs, rubs, or gallops. PULMONARY: Chest is clear to auscultation, no wheezing , no crackles. -ABDOMEN: Soft, epigastric pain and tenderness, nondistended, normoactive bowel sounds. No palpable organomegaly. MUSCULOSKELETAL: No joint swelling or deformity. EXTREMITIES: No cyanosis, clubbing, or pedal edema. NEUROLOGICAL: Gross neurological examination did not reveal any focal deficits. SKIN: No rashes. no petechiae. - Labs CBC & Chem 7: 05/05/23 04:53 05/05/23 04:53 Labs: Abnormal Lab Results - Last 24 Hours (Table) 05/05/23 05/05/23 05/05/23 Range/Units 04:53 04:53 04:53 MCV 103.6 H (80.0-100.0) fL Lymphocytes # 0.6 L (1.0-4.8) k/uL Sodium 135 L (137-145) mmol/L Carbon Dioxide 18 L (22-30) mmol/L Amylase 1589 H* (30-110) U/L Lipase 6820 H (23-300) U/L Assessment and Plan Assessment: Acute pancreatitis Delirium tremens with hallucination, improving Metabolic/toxic encephalopathy Alcohol use disorder Subclinical hyperthyroidism, asymptomatic Mild alcoholic transaminitis Mild calorie protein malnutrition Plan: Increase IV fluid Protonix Continue with CIWA protocol and phentermine Keep monitoring in the ICU with pulmonary/critical care consult Start Librium 25 mg 3 times a day Check for bladder scan Labs and medication were reviewed.. Continue same treatment. Continue with symptomatic treatment. Resume home medication. Monitor labs and vitals. DVT and GI prophylaxis. Further recommendations as per clinical course of the patient DVT prophylaxis: Subcutaneous heparin GI Prophylaxis: Ppi Prognosis is guarded
[2023-05-06] MEDS: hydrALAZINE HCL 20 MG/ML 1 ML VIAL IVP PRN ×2 (02:11→06:45)
[2023-05-06 05:11] LABS: Basophils % (A) 0 %; Eosinophils # (A) 0.1 k/uL (0-0.7); Eosinophils % (A) 1 %; HCT 51.8 % (39.0-53.0); HGB 16.9 gm/dL (13.0-17.5); Lymphocytes # (A) 0.7 k/uL (1.0-4.8); Lymphocytes % (A) 7 %; MCH 34.4 pg (25.0-35.0); MCHC 32.6 g/dL (31.0-37.0); MCV 105.7 fL (80.0-100.0); Macrocytosis Slight; Mean Platelet Volume 8.2; Monocytes # (A) 0.7 k/uL (0-1.0); Monocytes % (A) 7 %; Neutrophils # (A) 8.3 k/uL (1.3-7.7); Neutrophils % (A) 84 %; Platelet Count 158 k/uL (150-450); WBC 9.9 k/uL (3.8-10.6)
[2023-05-06 05:17] LABS: African American GFR (CKD) >90 (>60 ml/min/1.73 sqM); Anion Gap 14 mmol/L; Blood Urea Nitrogen 7 mg/dL (9-20); Calcium 8.9 mg/dL (8.4-10.2); Carbon Dioxide 17 mmol/L (22-30); Chloride 106 mmol/L (98-107); Glucose 74 mg/dL (74-99); Non-African American GFR(CKD) >90 (>60 ml/min/1.73 sqM); Potassium 3.4 mmol/L (3.5-5.1); Sodium 137 mmol/L (137-145)
[2023-05-06] MEDS: SODIUM CHLORIDE 0.9% 1,000 ML IV SCH ×2 (05:48→13:55)
[2023-05-06] MEDS: GABAPENTIN 300 MG CAP PO SCH ×3 (08:29→20:47)
[2023-05-06] MEDS: FAMOTIDINE 20 MG TAB PO SCH ×2 (08:29→20:47)
[2023-05-06] MEDS: chlordiazePOXIDE 25 MG CAP PO SCH ×3 (08:29→20:47)
[2023-05-06] MEDS: HEPARIN SODIUM,PORCINE 5,000 UNIT/ML 1 ML VIAL SQ SCH ×2 (08:29→20:47)
[2023-05-06] MEDS: THIAMINE 100 MG TAB PO SCH (08:30)
[2023-05-06] MEDS: NICOTINE 21MG/24HR PATCH TRANSDERM SCH (08:30)
[2023-05-06] MEDS: cloNIDine HCL 0.1 MG TAB PO SCH ×2 (08:30→20:47)
[2023-05-06] MEDS: PANTOPRAZOLE 40 MG/10 ML VIAL IVP SCH (08:30)
--- NOTE | 2023-05-06 10:01 | P.PN ---
Subjective Progress Note Date: 05/06/23 I am seeing this patient in new consultation today 05/04/2023 in the intensive care unit for acute alcohol withdrawal syndrome. Patient is a 47-year-old white male with past medical history significant for alcoholism. He reportedly drinks one fifth per day. Last drink was apparently Wednesday. He is currently delirious and unable to participate in HPI. Patient was sent from [facility] facility early this morning. He was there to become clean from alcohol. He was having hallucinations and was anxious and shaky. He's received a total of 16 mg of Ativan so far. For this reason, he is admitted to the intensive care unit. He will be started on Precedex infusion as he still agitated. He did try to climb on the bedside table, and is currently trying to get out of bed. Most recent recorded CIWA score is 18. He is having active auditory hallucinations. He does have a bedside sitter. Hemodynamically, the patient is stable. He is slightly hypertensive. No seizure activity noted. CBC on arrival is unremarkable. Except for some macrocytosis. He is likely vitamin B deficiency, and is on supplementation. BMP on arrival unremarkable. Normal saline infusing at 75 ml/hr. Patient will be monitored in the intensive care unit. On today's evaluation of 05/05/2023, the patient is off Precedex. The patient was taken off Precedex as of 5:45 AM this morning. He reported also some Ativan 1 mg at 9:30 AM this morning. No hallucinations. No confusions. He continues to have some shakiness and tremor. Is experiencing nausea and some abdominal pain. He had soft diet this morning. No emesis. No headaches. No altered mentation. Is quite weak. He is communicating however. In terms of his labs, his white cell count of 8.5 with a hemoglobin of 15.7, sodium level is at 135, BUN is at 40 with a creatinine of 0.6. Is currently on normal saline running at 75 mL an hour. Is also taken Librium 25 g by mouth 3 times a day. Is on Pepcid 20 mg twice a day and is also on Zofran. 05/06/2023, the patient remains off Precedex. Calm and comfortable. No agitation. No restlessness. Following commands. Answering questions. He remains on Librium 25 mg 3 times a day. His last dose of Ativan was yesterday. Meanwhile, the patient is on room air oxygen with a pulse ox greater than 93%. He is afebrile. He is hemodynamically stable. BUN is at 7 with a creatinine of 0.7 sodium levels of 137. The discomfort of 9.9 with a hemoglobin of 16.9. The lipase level was elevated and the patient was diagnosed having acute pancreatitis. Lipase level was at 6820 and amylase level was also elevated. The much explained his abdominal pain and nausea yesterday. Clear liquid diet. His taken Zofran as needed. He was also given gabapentin for his symptoms of pain and neuropathy in his lower extremities bilaterally. Objective - Vital Signs Vital signs: Vital Signs Temp 98.9 F 05/06/23 08:00 Pulse 112 H 05/06/23 08:00 Resp 18 05/06/23 08:00 BP 168/114 05/06/23 08:00 Pulse Ox 93 L 05/06/23 08:00 FiO2 Intake & Output 05/05/23 05/06/23 05/06/23 18:59 06:59 18:59 Intake Total 900 1250 250 Output Total 800 1600 225 Balance 100 -350 25 Weight 78.5 kg Intake: IV 900 1250 250 Sodium Chloride 0.9% 1, 900 1250 250 000 ml @ 125 mls/hr IV . Q8H [facility] Rx#:[id number] Output: Urine 800 1600 225 Other: Voiding Method External Catheter External Catheter # Voids 1 1 - Exam GENERAL EXAM: 47-year-old male, disheveled, having some tremors, no respiratory difficulties and the patient has no significant agitation on room air oxygen. HEAD: Normocephalic and atraumatic EYES: Normal reaction of pupils, equal size. NOSE: Clear with pink turbinates. THROAT: No erythema or exudates. NECK: No masses, no JVD. CHEST: No chest wall deformity. LUNGS: Equal air entry with no crackles, wheeze, rhonchi or dullness. On room air. No conversational dyspnea or accessory muscle use.. CVS: S1 and S2 normal with no audible murmur, regular rhythm. No extra heart sounds ABDOMEN: No hepatosplenomegaly, active bowel sounds, no guarding or rigidity. SPINE: No scoliosis or deformity SKIN: No rashes CENTRAL NERVOUS SYSTEM: No focal deficits, tone is normal in all 4 extremities. EXTREMITIES: There is no peripheral edema or cyanosis. Peripheral pulses are intact. There is severe clubbing. - Labs CBC & Chem 7: 05/06/23 03:36 05/06/23 03:36 Labs: Abnormal Lab Results - Last 24 Hours (Table) 05/05/23 05/06/23 05/06/23 Range/Units 04:53 03:36 03:36 MCV 105.7 H (80.0-100.0) fL Neutrophils # 8.3 H (1.3-7.7) k/uL Lymphocytes # 0.7 L (1.0-4.8) k/uL Potassium 3.4 L (3.5-5.1) mmol/L Carbon Dioxide 17 L (22-30) mmol/L BUN 7 L (9-20) mg/dL Creatinine 0.57 L (0.66-1.25) mg/dL Amylase 1589 H* (30-110) U/L Lipase 6820 H (23-300) U/L Assessment and Plan Assessment: Alcohol withdrawal syndrome and delirium tremens, improved, currently on Librium Acute pancreatitis, alcohol induced Nausea secondary to above, currently on Zofran Hypertension, currently on a clonidine 0.1 mg by mouth twice a day dose History of alcoholism, reportedly 1/5 of liquor/daily Mildly elevated LFTs related to above Hypertension Chronic ongoing tobacco dependence 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 Clonidine for blood pressure control Neurontin 300 milligrams 3 times a day every 8 hours for symptoms of neuropathy and chronic pain. Transfer the patient to a medical floor
[2023-05-06] MEDS: POTASSIUM CHLORIDE ER 20 MEQ TAB.ER PO SCH ×2 (17:29→18:02)
--- NOTE | 2023-05-06 20:04 | P.PN ---
Subjective This is a pleasant 47 years old male with unknown past medical history. Patient currently cannot provide information due to his confusion status. I nformation were obtained from the staff and medical records. Patient initially was sent from [place] for visual hallucinations which is started yesterday 05/20. Patient was noticed talking to people that are not there. He is a known history of alcohol use disorder and he drinks about 1/5 of liquor per day per records. Patient hemodynamically stable. No fever, no leukocytosis, the suspicion of infection is low for now however we'll keep monitoring her closely Liver enzymes mildly elevated, bilirubin is within the reference range TSH is high at 4.8 but normal free T4 at 1.4. His CIWA score was origin between 18-21 As per staff once he got to the ICU patient be about 850 mL and his suprapubic area still looks a little full 05/05/2023 Patient today is awake oriented to time place and person, his CIWA score is coming down to 2-3 with spikes at her level at time but generally doing well, He has some tremor and he can use hands with little difficulty. However patient is not eating well because of epigastric pain and tenderness secondary to pancreatitis with elevated lipase and amylase Postop may consider increasing her fluid to 1 25 mL/h on Protonix twice a day. 05/06/2023 Patient continued to improve Mentation back close to baseline Distal has poor appetite but start picking up through the day secondary to his acute pancreatitis and possible gastritis He currently On normal saline 125. Per hour, Protonix Clonidine for better blood pressure control CIWA score is 2 through the day showing improvement. Patient was transferred out of the ICU today Objective - Vital Signs Vital signs: Vital Signs Temp 98.9 F 05/06/23 08:00 Pulse 90 05/06/23 12:00 Resp 23 05/06/23 12:00 BP 133/91 05/06/23 12:00 Pulse Ox 95 05/06/23 12:00 FiO2 Intake & Output 05/05/23 05/06/23 05/06/23 18:59 06:59 18:59 Intake Total 900 1250 750 Output Total 800 1600 725 Balance 100 -350 25 Weight 78.5 kg Intake: IV 900 1250 750 Sodium Chloride 0.9% 1, 900 1250 750 000 ml @ 125 mls/hr IV . Q8H [facility] Rx#:[id number] Output: Urine 800 1600 725 Other: Voiding Method External Catheter External Catheter Urinal # Voids 1 1 - Exam GENERAL: The patient is alert and oriented x3, not in any acute distress. Well developed, well nourished. HEENT: Pupils are round and equally reacting to light. EOMI. No scleral icterus. No conjunctival pallor. Normocephalic, atraumatic. No pharyngeal erythema. No thyromegaly. CARDIOVASCULAR: S1 and S2 present. No murmurs, rubs, or gallops. PULMONARY: Chest is clear to auscultation, no wheezing , no crackles. -ABDOMEN: Soft, epigastric pain and tenderness, nondistended, normoactive bowel sounds. No palpable organomegaly. MUSCULOSKELETAL: No joint swelling or deformity. EXTREMITIES: No cyanosis, clubbing, or pedal edema. NEUROLOGICAL: Gross neurological examination did not reveal any focal deficits. SKIN: No rashes. no petechiae. - Labs CBC & Chem 7: 05/06/23 03:36 05/06/23 03:36 Labs: Abnormal Lab Results - Last 24 Hours (Table) 05/06/23 05/06/23 Range/Units 03:36 03:36 MCV 105.7 H (80.0-100.0) fL Neutrophils # 8.3 H (1.3-7.7) k/uL Lymphocytes # 0.7 L (1.0-4.8) k/uL Potassium 3.4 L (3.5-5.1) mmol/L Carbon Dioxide 17 L (22-30) mmol/L BUN 7 L (9-20) mg/dL Creatinine 0.57 L (0.66-1.25) mg/dL Assessment and Plan Assessment: Acute pancreatitis Delirium tremens with hallucination, improving Metabolic/toxic encephalopathy Alcohol use disorder Subclinical hyperthyroidism, asymptomatic Mild alcoholic transaminitis Mild calorie protein malnutrition Plan: Increase IV fluid Protonix Continue with CIWA protocol and phentermine Transfer of the ICU with pulmonary/critical care consult Check for bladder scan Labs and medication were reviewed.. Continue same treatment. Continue with symptomatic treatment. Resume home medication. Monitor labs and vitals. DVT and GI prophylaxis. Further recommendations as per clinical course of the patient DVT prophylaxis: Subcutaneous heparin GI Prophylaxis: Ppi Prognosis is guarded
[2023-05-07] MEDS: SODIUM CHLORIDE 0.9% 1,000 ML IV SCH ×2 (02:32→15:35)
[2023-05-07] MEDS: HEPARIN SODIUM,PORCINE 5,000 UNIT/ML 1 ML VIAL SQ SCH ×2 (08:01→20:43)
[2023-05-07] MEDS: FAMOTIDINE 20 MG TAB PO SCH ×2 (08:01→20:43)
[2023-05-07] MEDS: GABAPENTIN 300 MG CAP PO SCH ×3 (08:01→20:42)
[2023-05-07] MEDS: chlordiazePOXIDE 25 MG CAP PO SCH ×3 (08:01→20:43)
[2023-05-07] MEDS: NICOTINE 21MG/24HR PATCH TRANSDERM SCH (08:01)
[2023-05-07] MEDS: cloNIDine HCL 0.1 MG TAB PO SCH ×2 (08:01→20:43)
[2023-05-07] MEDS: THIAMINE 100 MG TAB PO SCH (08:01)
[2023-05-07] MEDS: PANTOPRAZOLE 40 MG TABLET PO SCH (08:02)
[2023-05-07 11:17] LABS: ALT 45 U/L (10-49); AST 23 U/L (14-35); Albumin 3.4 g/dL (3.8-4.9); Albumin/Globulin Ratio 1.42 Ratio (1.60-3.17); Alkaline Phosphatase 71 U/L (41-126); Amylase 253 U/L (23-121); BUN/Creat Ratio 7.86 Ratio (12.00-20.00); Blood Urea Nitrogen 5.5 mg/dL (9.0-27.0); Calcium 9.1 mg/dL (8.7-10.3); Carbon Dioxide 20.3 mmol/L (21.6-31.8); Chloride 104 mmol/L (96-109); Globulin 2.4 g/dL (1.6-3.3); Glucose 81 mg/dL (70-110); Lipase 187 U/L (14-60); Potassium 4.4 mmol/L (3.5-5.5); Sodium 135 mmol/L (135-145); Total Bilirubin 0.8 mg/dL (0.3-1.2); Total Protein 5.8 g/dL (6.2-8.2)
--- NOTE | 2023-05-07 13:20 | P.PN ---
Subjective Progress Note Date: 05/07/23 I am seeing this patient in new consultation today 05/04/2023 in the intensive care unit for acute alcohol withdrawal syndrome. Patient is a 47-year-old white male with past medical history significant for alcoholism. He reportedly drinks one fifth per day. Last drink was apparently Wednesday. He is currently delirious and unable to participate in HPI. Patient was sent from [facility] facility early this morning. He was there to become clean from alcohol. He was having hallucinations and was anxious and shaky. He's received a total of 16 mg of Ativan so far. For this reason, he is admitted to the intensive care unit. He will be started on Precedex infusion as he still agitated. He did try to climb on the bedside table, and is currently trying to get out of bed. Most recent recorded CIWA score is 18. He is having active auditory hallucinations. He does have a bedside sitter. Hemodynamically, the patient is stable. He is slightly hypertensive. No seizure activity noted. CBC on arrival is unremarkable. Except for some macrocytosis. He is likely vitamin B deficiency, and is on supplementation. BMP on arrival unremarkable. Normal saline infusing at 75 ml/hr. Patient will be monitored in the intensive care unit. On today's evaluation of 05/05/2023, the patient is off Precedex. The patient was taken off Precedex as of 5:45 AM this morning. He reported also some Ativan 1 mg at 9:30 AM this morning. No hallucinations. No confusions. He continues to have some shakiness and tremor. Is experiencing nausea and some abdominal pain. He had soft diet this morning. No emesis. No headaches. No altered mentation. Is quite weak. He is communicating however. In terms of his labs, his white cell count of 8.5 with a hemoglobin of 15.7, sodium level is at 135, BUN is at 40 with a creatinine of 0.6. Is currently on normal saline running at 75 mL an hour. Is also taken Librium 25 g by mouth 3 times a day. Is on Pepcid 20 mg twice a day and is also on Zofran. 05/06/2023, the patient remains off Precedex. Calm and comfortable. No agitation. No restlessness. Following commands. Answering questions. He remains on Librium 25 mg 3 times a day. His last dose of Ativan was yesterday. Meanwhile, the patient is on room air oxygen with a pulse ox greater than 93%. He is afebrile. He is hemodynamically stable. BUN is at 7 with a creatinine of 0.7 sodium levels of 137. The discomfort of 9.9 with a hemoglobin of 16.9. The lipase level was elevated and the patient was diagnosed having acute pancreatitis. Lipase level was at 6820 and amylase level was also elevated. The much explained his abdominal pain and nausea yesterday. Clear liquid diet. His taken Zofran as needed. He was also given gabapentin for his symptoms of pain and neuropathy in his lower extremities bilaterally. On 05/07/2023, the patient is awake and alert and communicating. No encephalopathy. No tremors. No chest pain. No shortness of breath. He remains on Librium. His symptoms of neuropathy is improved while being on Neurontin. He is receiving 300 mg by mouth 3 times a day. He is on room air oxygen with a pulse ox of 97%. He also had a component of pancreatitis. Is able to tolerate oral intake. He missed breakfast and the patient was sleeping. His going to have lunch. His lipase level is down to 187. His amylase level is down to 253. Electrolytes are all within normal limits. Objective - Vital Signs Vital signs: Vital Signs Temp 98.1 F 05/07/23 07:05 Pulse 82 05/07/23 07:05 Resp 18 05/07/23 07:05 BP 134/86 05/07/23 07:05 Pulse Ox 99 05/07/23 07:05 FiO2 Intake & Output 05/06/23 05/07/23 05/07/23 18:59 06:59 18:59 Intake Total 1250 Output Total 2075 208 Balance -825 -208 Intake: IV 1250 Sodium Chloride 0.9% 1, 1250 000 ml @ 75 mls/hr IV . [id number] [facility] Rx#:[id number] Output: Urine 1675 Post Void Residual 400 208 Other: Voiding Method Urinal Toilet Urinal # Voids 2 # Bowel Movements 0 - Exam GENERAL EXAM: 47-year-old male, calm and comfortable, no respiratory difficulties and the patient has no significant agitation on room air oxygen. HEAD: Normocephalic and atraumatic EYES: Normal reaction of pupils, equal size. NOSE: Clear with pink turbinates. THROAT: No erythema or exudates. NECK: No masses, no JVD. CHEST: No chest wall deformity. LUNGS: Equal air entry with no crackles, wheeze, rhonchi or dullness. On room air. No conversational dyspnea or accessory muscle use.. CVS: S1 and S2 normal with no audible murmur, regular rhythm. No extra heart sounds ABDOMEN: No hepatosplenomegaly, active bowel sounds, no guarding or rigidity. SPINE: No scoliosis or deformity SKIN: No rashes CENTRAL NERVOUS SYSTEM: No focal deficits, tone is normal in all 4 extremities. EXTREMITIES: There is no peripheral edema or cyanosis. Peripheral pulses are intact. There is severe clubbing. 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 Clonidine for blood pressure control Neurontin 300 milligrams 3 times a day every 8 hours for symptoms of neuropathy and chronic pain. Medical management is per medicine. Patient is currently out of the intensive care unit.
--- NOTE | 2023-05-07 23:11 | P.PN ---
Subjective This is a pleasant 47 years old male with unknown past medical history. Patient currently cannot provide information due to his confusion status. I nformation were obtained from the staff and medical records. Patient initially was sent from [place] for visual hallucinations which is started yesterday 05/20. Patient was noticed talking to people that are not there. He is a known history of alcohol use disorder and he drinks about 1/5 of liquor per day per records. Patient hemodynamically stable. No fever, no leukocytosis, the suspicion of infection is low for now however we'll keep monitoring her closely Liver enzymes mildly elevated, bilirubin is within the reference range TSH is high at 4.8 but normal free T4 at 1.4. His CIWA score was origin between 18-21 As per staff once he got to the ICU patient be about 850 mL and his suprapubic area still looks a little full 05/05/2023 Patient today is awake oriented to time place and person, his CIWA score is coming down to 2-3 with spikes at her level at time but generally doing well, He has some tremor and he can use hands with little difficulty. However patient is not eating well because of epigastric pain and tenderness secondary to pancreatitis with elevated lipase and amylase Postop may consider increasing her fluid to 1 25 mL/h on Protonix twice a day. 05/06/2023 Patient continued to improve Mentation back close to baseline Distal has poor appetite but start picking up through the day secondary to his acute pancreatitis and possible gastritis He currently On normal saline 125. Per hour, Protonix Clonidine for better blood pressure control CIWA score is 2 through the day showing improvement. Patient was transferred out of the ICU today 05/07/2023 Patient started tolerating diet but in the morning he was still in the distal did not feel well with eating therefore we going to keep him one more day for this reason. His epigastric abdominal pain is improving and currently 3/10. He still have some tremor from alcohol withdrawal but mentation is normal and no hallucination, is improving as well. We checked the bladder scan and it is 200-300 He saw normal saline 75 mL/h Patient may be considered for discharge soon if he keeps improving Objective - Vital Signs Vital signs: Vital Signs Temp 97.4 F L 05/07/23 20:00 Pulse 87 05/07/23 20:00 Resp 17 05/07/23 20:00 BP 137/75 05/07/23 20:00 Pulse Ox 99 05/07/23 20:00 FiO2 Intake & Output 05/07/23 05/07/23 05/08/23 06:59 18:59 06:59 Output Total 208 Balance -208 Output: Post Void Residual 208 Other: Voiding Method Toilet Toilet Urinal Urinal # Voids 2 5 # Bowel Movements 0 - Exam GENERAL: The patient is alert and oriented x3, not in any acute distress. Well developed, well nourished. HEENT: Pupils are round and equally reacting to light. EOMI. No scleral icterus. No conjunctival pallor. Normocephalic, atraumatic. No pharyngeal erythema. No thyromegaly. CARDIOVASCULAR: S1 and S2 present. No murmurs, rubs, or gallops. PULMONARY: Chest is clear to auscultation, no wheezing , no crackles. -ABDOMEN: Soft, epigastric pain and tenderness, nondistended, normoactive bowel sounds. No palpable organomegaly. MUSCULOSKELETAL: No joint swelling or deformity. EXTREMITIES: No cyanosis, clubbing, or pedal edema. NEUROLOGICAL: Gross neurological examination did not reveal any focal deficits. SKIN: No rashes. no petechiae. - Labs CBC & Chem 7: 05/06/23 03:36 05/07/23 06:33 Labs: Abnormal Lab Results - Last 24 Hours (Table) 05/07/23 Range/Units 06:33 Carbon Dioxide 20.3 L (21.6-31.8) mmol/L BUN 5.5 L (9.0-27.0) mg/dL BUN/Creatinine Ratio 7.86 L (12.00-20.00) Ratio Total Protein 5.8 L (6.2-8.2) g/dL Albumin 3.4 L (3.8-4.9) g/dL Albumin/Globulin Ratio 1.42 L (1.60-3.17) Ratio Amylase 253 H (23-121) U/L Lipase 187 H (14-60) U/L Assessment and Plan Assessment: Acute pancreatitis Delirium tremens with hallucination, improving Metabolic/toxic encephalopathy Alcohol use disorder Subclinical hyperthyroidism, asymptomatic Mild alcoholic transaminitis Mild calorie protein malnutrition Plan: Increase IV fluid Protonix Continue with CIWA protocol and phentermine Transfer of the ICU with pulmonary/critical care consult Check for bladder scan Labs and medication were reviewed.. Continue same treatment. Continue with symptomatic treatment. Resume home medication. Monitor labs and vitals. DVT and GI prophylaxis. Further recommendations as per clinical course of the lisa ent DVT prophylaxis: Subcutaneous heparin GI Prophylaxis: Ppi Prognosis is guarded
[2023-05-08] MEDS: SODIUM CHLORIDE 0.9% 1,000 ML IV SCH ×2 (02:12→08:45)
[2023-05-08] MEDS: chlordiazePOXIDE 25 MG CAP PO SCH ×2 (08:36→15:30)
[2023-05-08] MEDS: GABAPENTIN 300 MG CAP PO SCH ×2 (08:36→15:30)
[2023-05-08] MEDS: cloNIDine HCL 0.1 MG TAB PO SCH (08:36)
[2023-05-08] MEDS: NICOTINE 21MG/24HR PATCH TRANSDERM SCH (08:36)
[2023-05-08] MEDS: PANTOPRAZOLE 40 MG TABLET PO SCH (08:36)
[2023-05-08] MEDS: HEPARIN SODIUM,PORCINE 5,000 UNIT/ML 1 ML VIAL SQ SCH (08:36)
[2023-05-08] MEDS: THIAMINE 100 MG TAB PO SCH (08:36)
[2023-05-08] MEDS: FAMOTIDINE 20 MG TAB PO SCH (08:36)
[2023-05-08 13:22] VITALS: BP 101/65; PULSE 85; RESP 18; TEMP 98.4
--- NOTE | 2023-05-08 14:09 | P.PN ---
Subjective Progress Note Date: 05/08/23 I am seeing this patient in new consultation today 05/04/2023 in the intensive care unit for acute alcohol withdrawal syndrome. Patient is a 47-year-old white male with past medical history significant for alcoholism. He reportedly drinks one fifth per day. Last drink was apparently Wednesday. He is currently delirious and unable to participate in HPI. Patient was sent from [facility] facility early this morning. He was there to become clean from alcohol. He was having hallucinations and was anxious and shaky. He's received a total of 16 mg of Ativan so far. For this reason, he is admitted to the intensive care unit. He will be started on Precedex infusion as he still agitated. He did try to climb on the bedside table, and is currently trying to get out of bed. Most recent recorded CIWA score is 18. He is having active auditory hallucinations. He does have a bedside sitter. Hemodynamically, the patient is stable. He is slightly hypertensive. No seizure activity noted. CBC on arrival is unremarkable. Except for some macrocytosis. He is likely vitamin B deficiency, and is on supplementation. BMP on arrival unremarkable. Normal saline infusing at 75 ml/hr. Patient will be monitored in the intensive care unit. On today's evaluation of 05/05/2023, the patient is off Precedex. The patient was taken off Precedex as of 5:45 AM this morning. He reported also some Ativan 1 mg at 9:30 AM this morning. No hallucinations. No confusions. He continues to have some shakiness and tremor. Is experiencing nausea and some abdominal pain. He had soft diet this morning. No emesis. No headaches. No altered mentation. Is quite weak. He is communicating however. In terms of his labs, his white cell count of 8.5 with a hemoglobin of 15.7, sodium level is at 135, BUN is at 40 with a creatinine of 0.6. Is currently on normal saline running at 75 mL an hour. Is also taken Librium 25 g by mouth 3 times a day. Is on Pepcid 20 mg twice a day and is also on Zofran. 05/06/2023, the patient remains off Precedex. Calm and comfortable. No agitation. No restlessness. Following commands. Answering questions. He remains on Librium 25 mg 3 times a day. His last dose of Ativan was yesterday. Meanwhile, the patient is on room air oxygen with a pulse ox greater than 93%. He is afebrile. He is hemodynamically stable. BUN is at 7 with a creatinine of 0.7 sodium levels of 137. The discomfort of 9.9 with a hemoglobin of 16.9. The lipase level was elevated and the patient was diagnosed having acute pancreatitis. Lipase level was at 6820 and amylase level was also elevated. The much explained his abdominal pain and nausea yesterday. Clear liquid diet. His taken Zofran as needed. He was also given gabapentin for his symptoms of pain and neuropathy in his lower extremities bilaterally. On 05/07/2023, the patient is awake and alert and communicating. No encephalopathy. No tremors. No chest pain. No shortness of breath. He remains on Librium. His symptoms of neuropathy is improved while being on Neurontin. He is receiving 300 mg by mouth 3 times a day. He is on room air oxygen with a pulse ox of 97%. He also had a component of pancreatitis. Is able to tolerate oral intake. He missed breakfast and the patient was sleeping. His going to have lunch. His lipase level is down to 187. His amylase level is down to 253. Electrolytes are all within normal limits. On today's evaluation of 05/08/2023,no new complaints. No new labs. No agitation. No altered mentation. Pulse ox 97% on room air. Afebrile. Objective - Vital Signs Vital signs: Vital Signs Temp 98.3 F 05/08/23 07:05 Pulse 73 05/08/23 07:05 Resp 16 05/08/23 07:05 BP 142/83 05/08/23 07:05 Pulse Ox 98 05/08/23 07:05 FiO2 Intake & Output 05/07/23 05/08/23 05/08/23 18:59 06:59 18:59 Intake Total 240 Output Total 208 Balance -208 240 Intake: Oral 240 Output: Post Void Residual 208 Other: Voiding Method Toilet Toilet Urinal # Voids 5 2 # Bowel Movements 0 - Exam GENERAL EXAM: 47-year-old male, calm and comfortable, no respiratory d ifficulties and the patient has no significant agitation on room air oxygen. HEAD: Normocephalic and atraumatic EYES: Normal reaction of pupils, equal size. NOSE: Clear with pink turbinates. THROAT: No erythema or exudates. NECK: No masses, no JVD. CHEST: No chest wall deformity. LUNGS: Equal air entry with no crackles, wheeze, rhonchi or dullness. On room air. No conversational dyspnea or accessory muscle use.. CVS: S1 and S2 normal with no audible murmur, regular rhythm. No extra heart sounds ABDOMEN: No hepatosplenomegaly, active bowel sounds, no guarding or rigidity. SPINE: No scoliosis or deformity SKIN: No rashes CENTRAL NERVOUS SYSTEM: No focal deficits, tone is normal in all 4 extremities. EXTREMITIES: There is no peripheral edema or cyanosis. Peripheral pulses are intact. There is severe clubbing. 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 No abdominal pain. Lipase levels improved continue Librium, no active signs of delirium tremens No signs of any delirium tremens IV fluids at 75 mL an hour Continue with Pepcid And Zofran for nausea, as needed nicotine patch. Clonidine for blood pressure control, and those of 0.1 mg twice a day Neurontin 300 milligrams 3 times a day every 8 hours for symptoms of neuropathy and chronic pain. Medical management is per medicine. Patient is currently out of the intensive care unit. Discharge planning is in progress
--- NOTE | 2023-05-08 21:24 | P.DS ---
Providers Date of admission: 05/04/23 04:39 Attending physician: Rickie Field Consults: 05/04/23 04:36 Consult Physician Routine Consulting Provider: Osvaldo Elliott Consult Reason/Comments: Hallucinations. Acute alcohol withdrawal Do you want consulting provider notified?: Yes 05/04/23 06:07 Consult Physician Stat Consulting Provider: Eduardo Todd Consult Reason/Comments: icu, ciwa >21 Do you want consulting provider notified?: Already Contacted Primary care physician: Stated None Hospital Course: Diagnoses Acute pancreatitis, resolved Delirium tremens with hallucination, improved Metabolic/toxic encephalopathy Alcohol use disorder Subclinical hyperthyroidism, asymptomatic Mild alcoholic transaminitis Mild calorie protein malnutrition Hospital course: This is a pleasant 47 years old male who was originally sent from [place] for altered mental status and visual hallucination of one-day duration. Patient's was admitted with delirium tremens, severe with metabolic encephalopat hy and toxic encephalopathy, he was treated initially in the intensive care unit with pulmonary/critical care team followed closely. He was treated with [facility] protocol thiamine and Librium as well as IV hydration. Gabapentin and clonidine for his high blood pressure Patient showed interval improvement in his mentation back to normal. And currently he'll be discharged on tapered dose of Librium. Also patient has evidence with acute pancreatitis that is treated with IV fluids and Protonix, his abdominal pain significantly improved, today he was requesting his diet to be advanced and he couldn't tolerate regular diet. No abdominal pain or tenderness which are resolved no nausea vomiting. No other new complaints and patient was asked and eager to go to [place] today. And was seen walking the hallway back and forth several times with no difficulty by himself. Pulmonary team on the case will also clearing him for discharge. No patient will be discharged on tapered Librium, clonidine, nor dose of gabapentin Problems and management plan were discussed with the patient and he verbalized understanding and acceptance Patient was found stable and can be discharged asked to [place] in guarded prognosis however he needs follow-up as an outpatient. Patient was instructed to follow up with PCP within one week and patient agrees Physical exam Gen: patient is a AAOx3, no distress CVS: S1-S2, RRR, no murmur Lungs: B/L CTA, no wheezing Abdomen: soft, no distention, no tenderness, positive bowel sounds Extremity: no leg edema or induration Time spent more than 35 minutes Patient Condition at Discharge: Serious Plan - Discharge Summary Discharge Rx Participant: Yes New Discharge Prescriptions: New cloNIDine HCL [Catapres] 0.1 mg PO BID #60 tab Nicotine 21Mg/24Hr Patch [Habitrol] 1 patch TRANSDERM DAILY 5 Days #5 patch chlordiazePOXIDE HCl [Librium] 25 mg PO DIRECTED 5 Days #5 cap Gabapentin [Neurontin] 200 mg PO BID 3 Days #12 cap Famotidine [Pepcid] 20 mg PO BID 15 Days #30 tab Continue Multivitamins, Thera [Multivitamin (formulary)] 1 tab PO DAILY Ibuprofen [Motrin Ib] 600 mg PO Q6H PRN PRN Reason: Pain Or Fever > 100.5 ondansetron HCL [Zofran] 8 mg PO Q6H PRN PRN Reason: Nausea Acetaminophen Tab [Tylenol] 650 mg PO Q4H PRN MDD 4 doses PRN Reason: Pain Or Fever > 100.5 traZODone HCL [Desyrel] 50 - 150 mg PO HS PRN PRN Reason: Insomnia Thiamine [Vitamin B-1] 100 mg PO DAILY Calcium/Mag/Zinc/D3 1 tab PO TID PRN PRN Reason: cramps Discontinued cloNIDine HCL [Catapres] 0.1 mg PO Q4H PRN PRN Reason: withdraw anxiety LORazepam [Ativan] 1 - 2 mg PO Q4H PRN PRN Reason: Anxiety Chlorpheniramine Maleate [Chlor-Trimeton] 4 mg PO Q4H PRN PRN Reason: Allergy Symptoms Discharge Medication List Acetaminophen Tab [Tylenol] 650 mg PO Q4H PRN MDD 4 doses 05/04/23 [History] Calcium/Mag/Zinc/D3 1 tab PO TID PRN 05/04/23 [History] Ibuprofen [Motrin Ib] 600 mg PO Q6H PRN 05/04/23 [History] Multivitamins, Thera [Multivitamin (formulary)] 1 tab PO DAILY 05/04/23 [History] Thiamine [Vitamin B-1] 100 mg PO DAILY 05/04/23 [History] ondansetron HCL [Zofran] 8 mg PO Q6H PRN 05/04/23 [History] traZODone HCL [Desyrel] 50 - 150 mg PO HS PRN 05/04/23 [History] Famotidine [Pepcid] 20 mg PO BID 15 Days #30 tab 05/08/23 [Rx] Gabapentin [Neurontin] 200 mg PO BID 3 Days #12 cap 05/08/23 [Rx] Nicotine 21Mg/24Hr Patch [Habitrol] 1 patch TRANSDERM DAILY 5 Days #5 patch 05/08/23 [Rx] chlordiazePOXIDE HCl [Librium] 25 mg PO DIRECTED 5 Days #5 cap 05/08/23 [Rx] cloNIDine HCL [Catapres] 0.1 mg PO BID #60 tab 05/08/23 [Rx] Follow up Appointment(s)/Referral(s): None,Stated [Primary Care Provider] - 1-2 days (Please establish yourself with a Primary Care Physician and follow-up at time of discharge from [place]. ) Patient Instructions/Handouts: Chlordiazepoxide (By mouth), Clonidine (By mouth), Famotidine (By mouth), Nicotine (Absorbed through the skin), Gabapentin (By mouth), How to Stop Smoking (DC), Abuse of Alcohol (DC), Hypertension (DC) Activity/Diet/Wound Care/Special Instructions: [place] at d/c. Call [phone] for transportation. resume previous diet activity as tolerated Discharge Disposition: OTHER INSTITUTION NOT DEFINED
== END 2023-05-08 18:32 | disposition other institution (70) | DRG 896 ==
LOC: EC 00:35 → 4SSUR 04:39 → 2SICU 05:38 → 5NMEDONC 05-06 17:02
PROVIDERS: ADMIT Hospitalist; ATTEND Hospitalist
DX: F10.231 Alcohol dependence with withdrawal delirium (principal); G92.8 Other toxic encephalopathy; K85.90 Acute pancreatitis without necrosis or infection, unspecified; E44.1 Mild protein-calorie malnutrition; E53.9 Vitamin B deficiency, unspecified; Z68.23 Body mass index [BMI] 23.0-23.9, adult; E03.8 Other specified hypothyroidism; I10 Essential (primary) hypertension; Z63.5 Disruption of family by separation and divorce; Z56.0 Unemployment, unspecified; D75.89 Other specified diseases of blood and blood-forming organs; F17.210 Nicotine dependence, cigarettes, uncomplicated; G89.29 Other chronic pain; G62.9 Polyneuropathy, unspecified; Z79.899 Other long term (current) drug therapy; Z88.1 Allergy status to other antibiotic agents; Z88.5 Allergy status to narcotic agent; R11.0 Nausea; R74.01 Elevation of levels of liver transaminase levels
CPT/HCPCS: 36415; 80048; 80053; 82150; 83690; 84439; 84443; 85025; 96361; 96374; 96376; 99291